=== PATIENT | male | born 1985 | race Caucasian/White ===

== ENCOUNTER → 2017-08-14 | Outpatient (CLI) | payer OTHER | END | disposition home or self-care (01) | LOC: CFH 15:16 | PROVIDERS: ATTEND Family Medicine | DX: R01.1 Cardiac murmur, unspecified (principal); Z87.891 Personal history of nicotine dependence; Z82.49 Family history of ischemic heart disease and other diseases of the circulatory system | CPT/HCPCS: 93306 ==

== ENCOUNTER 2019-06-04 13:37 | Day surgery (SDC) | payer BC ==
[~2019-06-04] VITALS: Ht 188 cm; Wt 86.9 kg
[2019-06-04 14:06] VITALS: BP 130/85
[2019-06-04] MEDS ORDERED: LACTATED RINGERS 1,000 ML IV SCH (14:11)
[2019-06-04] MEDS ORDERED: NO MEDICATIONS (14:28)
[2019-06-04] MEDS ORDERED: BUPIVACAINE/PF 0.25% ONE (14:41)
[2019-06-04] MEDS ORDERED: FENTANYL PF 250 MCG/5ML ONE (14:58)
[2019-06-04] MEDS ORDERED: MIDAZOLAM 1 MG/ML, 2ML ONE (14:58)
[2019-06-04] MEDS ORDERED: ACETAMINOPHEN 325 MG TABLET PO PRN (15:00)
[2019-06-04] MEDS ORDERED: FENTANYL PF 100 MCG/2ML IV PRN (15:00)
[2019-06-04] MEDS ORDERED: hydrALAzine 20 MG/ML, 1ML IV PRN (15:00)
[2019-06-04] MEDS ORDERED: MEPERIDINE/PF 25MG/0.5ML IVPush PRN (15:00)
[2019-06-04] MEDS ORDERED: OXYcodone 5 MG/5 ML ORAL.SOL UDC PO PRN (15:00)
[2019-06-04] MEDS ORDERED: PROMETHAZINE 12.5 MG SUPP PR PRN (15:00)
[2019-06-04] MEDS ORDERED: ONDANSETRON 2MG/ML, 2ML IV PRN (15:00)
[2019-06-04] MEDS ORDERED: LABETALOL 5MG/ML, 20ML IV PRN (15:00)
[2019-06-04] MEDS ORDERED: HYDROmorphone 2 MG/ML, 1ML IVPush PRN (15:00)
[2019-06-04] MEDS ORDERED: DEXAMETHASONE 4 MG/ML, 1ML ONE ×2 (16:07)
[2019-06-04] MEDS ORDERED: CEFAZOLIN 1,000 MG ONE ×2 (16:11)
[2019-06-04] MEDS ORDERED: ROCURONIUM 10MG/ML,5ML ONE (16:29)
[2019-06-04] MEDS ORDERED: ONDANSETRON 2MG/ML, 2ML ONE (16:29)
[2019-06-04] MEDS ORDERED: PROPOFOL 10 MG/ML, 20ML ONE ×2 (16:29)
[2019-06-04] MEDS ORDERED: KETOROLAC 30 MG/1 ML ONE (16:30)
[2019-06-04] MEDS ORDERED: OXYcodone 5 MG/5 ML ORAL.SOL UDC ONE (17:12)
[2019-06-04] MEDS ORDERED: ACETAMINOPHEN 650 MG/20.3 ML UDC ONE (17:12)
== END 2019-06-04 18:40 | disposition home or self-care (01) ==
LOC: OR 13:37
PROVIDERS: ATTEND Orthopaedic Surgery
DX: S64.491A Injury of digital nerve of left index finger, initial encounter (principal); F17.200 Nicotine dependence, unspecified, uncomplicated; Z72.89 Other problems related to lifestyle; W27.8XXA Contact with other nonpowered hand tool, initial encounter; Y93.89 Activity, other specified; Y92.89 Other specified places as the place of occurrence of the external cause; Y99.8 Other external cause status
CPT/HCPCS: 64910; C9352; J0690; J1100; J1885; J2250; J2405; J2704; J3010; J3490; J7120